=== PATIENT | female | born 1945 | race Caucasian/White ===

== ENCOUNTER → 2016-09-14 11:43 | Outpatient (CLI) | payer MEDICARE, BC ==
[~2016-09-14] VITALS: Ht 167.6 cm; Wt 89.1 kg
--- NOTE | ~2016-09-14 | OP ---
PATIENT NAME: EBONY MONAHAN MEDICAL RECORD: [id number] :49 LOCATION:D.CAT ADMISSION DATE: SURGEON: MELANIE BOYD M.D. DATE OF OPERATION: 09/14/2016 Catheterization Report REFERRING PHYSICIAN: Chris Huang MD. INDICATION: Angina. PROCEDURES PERFORMED: 1. Selective coronary angiography. 2. Left heart catheterization with ventriculogram. EQUIPMENT USED: A 5-Palestinian JL4, Tanner right, pigtail catheter. TECHNIQUE: A 5-Palestinian sheath was inserted in retrograde fashion in the right common femoral artery. Next, selective coronary angiography was performed in standard views using 5-Palestinian JL4 and Tanner right. Left heart catheterization, we used a pigtail catheter. CORONARY ANATOMY: 1. Left main: Left main trunk is moderate in caliber. It gives rise to the LAD and circumflex. It is angiographically normal. 2. LAD: This is a moderate caliber vessel extending to the apex. It has mild irregularities throughout its course, but nothing worse than 20%. 3. Circumflex: This vessel is moderate in caliber. It provides a lateral branch proximal segment. The circumflex and lateral branch are smooth-walled and angiographically normal. 4. Right coronary: This vessel is large in caliber and dominant. The proximal vessel has been stented. There is mild restenosis seen in the proximal stent, but nothing worse than 30%. 5. Left ventricle: Left ventricle is normal in size and function. No wall motions are seen. Its ejection fraction 60%. IMPRESSION: 1. 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 2. Normal left ventricular function. RECOMMENDATIONS: She has been having symptoms of nocturnal angina. The lesion in the right coronary artery does not appear to be critical. However, I will check a Cardiolite stress test to make sure there is no evidence of ischemia account for her symptoms. TRANSINT:[id number] Voice Confirmation ID: [id number] DOCUMENT ID: [id number] OPERATIVE REPORT [id number] EBONY MONAHAN MELANIE BOYD M.D. CC: [id number] DICTATION DATE: 09/14/16 1445 TECHNICAL ASSISTANT: 09/14/16 2359 [facility] [address] [place] [address]
--- NOTE | ~2016-09-14 | HEMODYNAMI ---
PATIENT:EBONY MONAHAN MEDICAL RECORD: [id number] : 49 LOCATION:DMEENU ADMISSION DATE: 09/14/16 Generatedon:09/14/201614:44 Patient name: EBONY MONAHAN Patient #: [id number] SSN: DO B: 1945 Date of study: 09/14/2016 Page: Of Hemodynamic Procedure Report Patient Data Patient Demographics Procedure consent was obtained First Name: EBONY Gender: Female Last Name: TANIYA : 1945 Middle Initial: BRANDON Age: 71 year(s) Patient #: [id number] Race: Unknown Additional ID: [id number] Contact details Address: [address] [place] [address] State: [place] City: [place] Zip code: [address] Past Medical History Allergies Allergen Reaction Date Comments Reported Other allergy 09/14/2016 Codeine, Naproxen, Pravastatin, zocor Admission Admission Data Admission Date: 09/14/2016 Admission Time: 11:43 Lab Results Lab Result Date: 09/14/2016 Lab Result Time: 0:00 Biochemistry Name Units Result Min Max BUN mg/dl 15 --(--*-)-- 7 18 Creatinine mg/dl 0.6 --(*---)-- 0.6 1.3 CBC Name Units Result Min Max Hemoglobin g/dl 15 --(-*--)-- 13.5 17.5 Procedure Procedure Types Cath Procedure Diagnostic Procedure LHC LHC w/Coronaries Miscellaneous Procedures Moderate Sedation up to 15 minutes Procedure Description Procedure Date Procedure Date: 09/14/2016 Procedure Start Time: 14:26 Procedure End Time: 14:42 Procedure Staff Name Function Maximo Rivera MD Performing Physician Elliott Espinoza RT Scrub Jillian Boone RN Nurse Nita Wilkerson RT Monitor Procedure Data Cath Procedure Fluoroscopy Diagnostic fluoroscopy Total fluoroscopy Time: 2.7 time: 2.7 min min Diagnostic fluoroscopy Total fluoroscopy dose: 426 dose: 426 mGy mGy Contrast Material Contrast Material Type Amount (ml) Isovue 300 78 Entry Location Entry Primary Successful Side Size Upsize Upsize Entry Closure Succes sful Closure Location (Fr) 1 (Fr) 2 (Fr) Remarks Device Remarks Femoral Right 5 Fr Exoseal artery Estimated blood loss: 10 ml Diagnostic catheters Device Type Used For End Catheter Placement Cordis 5Fr JL 4.0 Procedure Catheter (MP) Cordis 5Fr 3DRC Catheter Procedure (MP) Cordis 5Fr Pigtail Procedure Catheter (MP) Procedure Complications No complications Procedure Medications Medication Administration Route Dosage Oxygen NC 2 l/min Lidocaine 2% added to field 20 Heparin Flush Bag added to field 2 bags (1000units/500ml NS) 0.9% NaCl I.V. 100 ml/hr Versed I.V. 2 mg Fentanyl I.V. 100 mcg Versed I.V. 1 mg Fentanyl I.V. 50 mcg Versed I.V. 1 mg Fentanyl I.V. 50 mcg Hemodynamics Rest Heart Rate: 67 (bpm) Pressure Samples Time Site Value (mmHg) Purpose Heart Use Rate(bpm) 14:36 LV 151/1,19 Snapshot 67 14:37 AO 179/85(127) Pullback 80 14:37 LV 161/4,21 Pullback 80 Gradients Valve Time Site 1 Site 2 Mean SEP/DFP Peak To Heart Use (mmHg) (sec/min) Peak Rate (mmHg) (bpm) Aortic 14:37 LV AO 0 7 0 80 161/4,21 179/85(127) Calculations Valve P-P Mean Valve Index Valve Source Name Gradient Area Flow (cm2) Aortic 0 0 0 0 Snapshots Pre Cath Intra NCS Post Cath Vital Signs Time Heart Resp SPO2 etCO2 [id number] NIBP (mmHg) Rhythm Pain Sedation Rate (ipm) (%) (mmHg) (mmHg) Status Level (bpm) 14:20:03 72 16 98 0 0 173/91(132) NSR 0 (11) 10(A) , No pain 14:24:27 72 17 93 0 0 179/90(109) NSR 0 (11) 10(A) , No pain 14:28:49 67 17 95 0 0 158/89(126) NSR 0 (11) 9(A) , No pain 14:33:09 77 16 94 0 0 164/84(115) NSR 0 (11) 9(A) , No pain 14:37:23 81 16 94 0 0 160/82(116) NSR 0 (11) 10(A) , No pain 14:41:43 72 19 93 0 0 154/82(124) NSR 0 (11) 10(A) , No pain Medications Time Medication Route Dose Verified Delivered Reason Notes Effe ctiveness by by 14:18:04 Oxygen NC 2 Maximo Buffie used for l/min Miguel Boone RN procedure 14:18:14 Lidocaine 2% added 20ml Maximo Maximo for local to vial Miguel Rivera MD anesthetic field 14:18:20 Heparin Flush added 2 Maximo Maximo for local Bag to bags Miguel Rivera MD anesthetic (1000units/500ml field NS) 14:18:31 0.9% NaCl I.V. 100 Maximo Buffie Per ml/hr Miguel Boone RN physician 14:22:04 Versed I.V. 2 mg Maximo Buffie for Miguel Boone RN sedation 14:22:08 Fentanyl I.V. 100 Maximo Buffie for mcg Miguel Boone RN sedation 14:27:28 Versed I.V. 1 mg Maximo Buffie for Miguel Boone RN sedation 14:27:32 Fentanyl I.V. 50 Maximo Buffie for mcg Miguel Boone RN sedation 14:32:52 Versed I.V. 1 mg Maximo Buffie for Miguel Boone RN sedation 14:32:59 Fentanyl I.V. 50 Maximo Buffie for mcg Miguel Boone RN sedation Procedure Log Time Note 13:42:59 ACC Patient presents with Stable Angina CCS Anginal Class 2--Slight limitation of ordinary activity. 13:43:01 Diagnostic Cath status Elective 13:43:03 Elliott Espinoza RT(R) sent for patient. Start room use. 13:43:05 Time tracking: Regular hours 13:43:09 Plan of Care:Hemodynamics will remain stable., Cardiac rhythm will remain stable., Comfort level will be maintained., Respiratory function will remain adequate., Patient/ family verbilizes understanding of procedure., Procedure tolerated without complication., Recovers from procedure without complications.. 13:51:20 H&P Date Dictated: 10/01/2016 Within 30 days and on chart., H&P Addendum completed by physician on day of procedure. (MUST COMPLETE FOR ALL OUTPATIENTS). 13:52:03 Lab results completed and on chart. 13:52:39 Lab Result : BUN 15 mg/dl 13:52:39 Lab Result : Hemoglobin 15 g/dl 13:52:39 Lab Result : Creatinine 0.6 mg/dl 14:05:29 Patient received from Pre/Post Procedure Room to CCL 1 Alert and oriented. Tansferred to table in Supine position. 14:05:34 Warm blankets applied, and jose hugger turned on for patient comfort. 14:05:40 Correct patient and procedure confirmed by team. 14:05:42 Signed procedure consent form obtained from patient. 14:05:50 Pre-procedure instructions explained to patient. 14:05:52 Family in waiting room. 14:05:59 Patient NPO since Midnight. 14:06:53 Patient allergic to Other allergyCodeine, Naproxen, Pravastatin, zocor 14:06:56 Is the patient allergic to Iodine/contrast media? No. 14:07:05 Patient diabetic? No. 14:07:08 Snore? Yes 14:07:12 Sleep apnea? No 14:07:16 Airway obstruction? No ? 14:15:28 Is patient on blood thinner?Yes 14:15:31 ACC The patient was administered the following blood thiners within the last 24 hours: ACCAspirin 14:15:39 Previous problem with sedation/anesthesia? No ? 14:15:45 Dentures? No ? 14:15:58 Patient pain scale 0/10 ?. 14:16:10 IV patent on arrival in right forearm with 0.9% NaCl at KVO. 14:16:18 Right groin area was prepped with chlora-prep and draped in sterile fashion 14:16:19 Alarms reviewed by R. N. 14:16:20 Sharps counted by scrub and verified by R.N. 14:16:23 Physician paged 14:17:28 Physician arrived 14:17:32 --------ALL STOP TIME OUT------ 14:17:33 Final Timeout: patient, procedure, and site verified with staff and physician. All members of the team are in agreement. 14:17:36 Right groin site verified by team. 14:17:39 Physical assessment completed. ASA score P 2 - A patient with mild systemic disease as per Maximo Rivera MD. 14:17:43 Sedation plan: IV Moderate Sedation Versed, Fentanyl 14:18:04 Oxygen 2 l/min NC was administered by Jillian Boone RN; used for procedure; 14:18:14 Lidocaine 2% 20ml vial added to field was administered by Maximo Rivera MD; for local anesthetic; 14:18:20 Heparin Flush Bag (1000units/500ml NS) 2 bags added to field was administered by Maximo Rivera MD; for local anesthetic; 14:18:31 0.9% NaCl 100 ml/hr I.V. was administered by Jillian Boone RN; Per physician; 14:18:49 Vital chart was started 14:22:04 Versed 2 mg I.V. was administered by Jillian Boone RN; for sedation; 14:22:08 Fentanyl 100 mcg I.V. was administered by Jillian Boone RN; for sedation; 14:23:38 Use device set Femoral Dx 14:23:40 Acist Syringe opened to sterile field. 14:23:40 Bag Decanter opened to sterile field. 14:23:41 Medline Cath Pack opened to sterile field. 14:23:41 Terumo 5Fr Wray Sheath opened to sterile field. 14:23:42 St Zen 260cm J .035 wire opened to sterile field. 14:23:43 Acist Hand Control opened to sterile field. 14:23:43 Acist Manifold opened to sterile field. 14:23:44 Diagnostic Infinity 5Fr Multipack catheter opened to sterile field. 14:23:44 Tegaderm 4 x 4 opened to sterile field. 14:23:56 Procedure type changed to Cath procedure, Diagnostic procedure, LHC, LHC w/Coronaries, Miscellaneous Procedures, Moderate Sedation up to 15 minutes 14:24:06 Zero performed for pressure channel P1 14:26:36 Procedure started. 14:26:36 Full Disclosure recording started 14:26:39 Local anesthetic to right femoral artery with Lidocaine 2% by Maximo Rivera MD.INITIAL ACCESS ONLY 14:26:59 A 5 Fr sheath was inserted into the Right Femoral artery 14:27:28 Versed 1 mg I.V. was administered by Jillian Boone RN; for sedation; 14:27:32 Fentanyl 50 mcg I.V. was administered by Jillian Boone RN; for sedation; 14:27:53 Zero performed for pressure channel P1 14:28:00 Zero performed for pressure channel P1 14:28:07 Zero performed for pressure channel P1 14:28:12 Zero performed for pressure channel P1 14:28:27 J wire advanced. 14:30:18 A Cordis 5Fr JL 4.0 Catheter (MP) was advanced over the wire and used for Procedure. 14:32:28 LCA angiography performed. 14:32:34 Catheter removed. 14:32:52 Versed 1 mg I.V. was administered by Jillian Boone RN; for sedation; 14:32:56 A Cordis 5Fr 3DRC Catheter (MP) was advanced over the wire and used for Procedure. 14:32:59 Fentanyl 50 mcg I.V. was administered by Jillian Boone RN; for sedation; 14:34:33 RCA angiography performed. 14:34:46 Catheter removed. 14:35:44 A Cordis 5Fr Pigtail Catheter (MP) was advanced over the wire and used for Procedure. 14:35:48 LV gram done using FRIEDMAN 14:36:56 EF : 60 % 14:38:18 Cordis 5Fr Exoseal opened to sterile field. 14:39:18 Catheter removed. 14:39:55 Sheath removed intact; hemostasis achieved with Exoseal to the Right Femoral artery. 14:40:03 Procedure ended.(Physican Out) 14:40:37 Fluoroscopy time 02.70 minutes. 14:40:44 Fluoroscopy dose: 426 mGy 14:40:44 Flurop Dose total: 426 14:40:49 Contrast amount:Isovue 300 78ml. 14:40:52 Sharps counted by scrub and verified by R.N. 14:41:01 Insertion/operative site no bleeding no hematoma. 14:41:05 Post-op/insertion site Right Femoral artery dressed using a 4 x 4 and Tegaderm. 14:41:08 Post Procedure Pulses reassessed and unchanged 14:41:12 Post-procedure physical assessment completed. ASA score P 2 - A patient with mild systemic disease as per Maximo Rivera MD. 14:41:16 Post procedure rhythm: unchanged. 14:41:19 Estimated blood loss: 10 ml 14:41:21 Post procedure instruction explained to patient.Patient verbalizes understanding. 14:41:34 Procedure and supply charges have been captured, reviewed, submitted and are correct. 14:41:54 Procedure Complication : No complications 14:41:58 Vital chart was stopped 14:42:07 See physician's report for complete and final results. 14:42:09 Report given to Pre/Post Procedure Room. 14:42:12 Patient transfered to Pre/Post Procedure Room with Stretcher. 14:42:17 Procedure ended. 14:42:17 Full Disclosure recording stopped 14:42:20 End room use (Document Last) Device Usage Item Name Manufacture Quantity Catalog Hospital Part Current Minimal Lo t# / Number Charge Number Stock Stock Serial# Code Acist Acist 1 [id number] [id number] 228456 [id number] 20 Syringe [employer] Bag Microtek 1 2002S 380102 31219 349974 5 Decanter [employer] Inc. Medline Cardinal 1 [id number] 338066 17860 076499 5 Cath Pack Health Terumo 5Fr Terumo 1 [id number] 475960 220125 154892 [address] Zen St Zen 1 900940 345823 504133 007998 30 260cm J .035 wire Acist Hand Acist 1 04819 818176 730867 289158 5 Control Medical [employer] Inc Acist Acist 1 91790 049543 770578 947833 5 Manifold Medical [employer] Inc Diagnostic Cardinal 1 WA1953 150873 26780 638376 30 Infinity Health 5Fr Multipack catheter Tegaderm 4 3M 1 1626W 849985 211985 699343 5 x 4 Cordis 5Fr Cardinal 1 883626 5 JL 4.0 Health Catheter (MP) Cordis 5Fr Cardinal 1 827359 5 3DRC Health Catheter (MP) Cordis 5Fr Cardinal 1 818472 5 Pigtail Health Catheter (MP) Cordis 5Fr Cardinal 1 EX500 210421 800344 236287 10 CallmyName Signature [place]it [place] Stage Time Signature Unsigned Intra-Procedure 09/14/2016 Nita Wilkerson 2:44:32 PM RT(R) Signatures Monitor : Nita Wilkerson Signature : RT Date : Time : [facility] [address] [place] [address]
[~2016-09-14 11:43] MED LIST: BAYER CHEWABLE81 MG PO; CRESTOR10 MG PO; PRILOSEC20 MG PO; PROZAC20 MG PO; TENORMIN25 MG PO
[2016-09-14 12:06] VITALS: BP 153/78; Ht 167.6 cm; Wt 89.1 kg
[2016-09-14 12:28] LABS: CALC OSMOLALITY 274 mosm/kg (275-300); CALCIUM 9.2 mg/dL (8.5-10.1); CARBON DIOXIDE 30.1 mmol/L (21.0-32.0); CHLORIDE - SERUM 100 mmol/L (98-107); CREATININE - SERUM 0.6 mg/dL (0.6-1.3); GLUCOSE 105 mg/dL (74-106); POTASSIUM - SERUM 4.1 mmol/L (3.5-5.1); SODIUM 137 mmol/L (136-145); UREA NITROGEN 15 mg/dL (7-18); eGFR NON AFRICAN AMERICAN > 90 mL/min (90-120)
[2016-09-14 12:42] LABS: BASOPHILS 0.2 % (0-2); EOSINOPHILS 1.5 % (0-7); HEMATOCRIT 44.9 % (36.0-48.0); IMMATURE GRANULOCYTES 0.3 % (0-5); LYMPHOCYTES 27.7 % (15-50); MCH 31.6 pg (26.0-34.0); MCHC 33.4 g/dL (31.0-37.0); MCV 94.5 fL (80.0-100.0); MEAN PLATELET VOLUME 11.5 fL (7.4-10.4); NEUTROPHILS 65.3 % (40-80); PLATELET COUNT 222 10x3/uL (130-400); RBC 4.75 10x6/uL (4.00-5.40); RDW 13.5 % (11.5-14.5); WBC 8.6 10x3/uL (4.8-10.8)
--- NOTE | 2016-09-14 15:19 | NUR ---
1500 RECEIVED PT FROM CARDIAC TECH. PT IS ALERT, DENIES ANY C/O PAIN OR NAUSEA. DRESSING TO RIGHT GROIN IS CDI, NO BLEEDING OR HEMATOMA NOTED. PEDAL PULSES ARE PALPABLE. FEET EQUAL IN COLOR AND WARMTH. IV INFUSING PER ORDERS. AT BEDSIDE. CALL LIGHT IN REACH.
--- NOTE | 2016-09-14 15:21 | NUR ---
1515 RIGHT GROIN DRESSING CDI, AREA IS SOFT AND NONTENDER. PT DENIES ANY C/O. SANDWICH AND PO FLUIDS SERVED. AT BEDSIDE.
--- NOTE | 2016-09-14 15:40 | NUR ---
1530 RIGHT GROIN DRESSING IS CDI, NO BLEEDING OR HEMATOMA NOTED. DENIES ANY C/O CHEST PAIN, VSS, PEDAL PULSES PALPABLE. AT BEDSIDE.
--- NOTE | 2016-09-14 17:12 | NUR ---
1600 PT HAS TOLERATED SANDWICH AND PO FLUIDS WITH NO C/O NAUSEA. DRESSING TO RIGHT GROIN IS CDI, NO BLEEDING OR HEMATOMA NOTED. AREA IS SOFT AND NONTENDER. 1700 PT ATTEMPTED TO VOID USING BEDPAN WITH NO SUCCESS, IV DC'D WITH CATH INTACT. 1730 REVIEWED DC INSTRUCTIONS WITH PT WHO VERBALIZES UNDERSTANDING. PT ESCORTED TO PRIVATE AUTO VIA WC BY STAFF WITH DRIVING HER HOME.
== END | disposition home or self-care (01) ==
LOC: D.CATH 11:43
PROVIDERS: Internal Medicine Cardiovascular Disease
DX: I25.119 Atherosclerotic heart disease of native coronary artery with unspecified angina pectoris (principal); T82.855A Stenosis of coronary artery stent, initial encounter

== ENCOUNTER → 2017-03-17 16:04 | Outpatient (CLI) | payer MEDICARE, BC ==
[2016-09-14 12:06] VITALS: BMI 31.7
== END | disposition home or self-care (01) ==
LOC: D.MAMMO 15:15
DX: Z12.31 Encounter for screening mammogram for malignant neoplasm of breast (principal)

== ENCOUNTER 2019-01-15 08:00 | Outpatient (CLI) | payer MEDICARE, BC ==
[2016-09-14 12:06] VITALS: BMI 31.7
== END 2019-01-15 23:59 | disposition home or self-care (01) ==
LOC: D.MAMMO 08:00
PROVIDERS: ATTEND Family Medicine Adult Medicine
DX: N63.20 Unspecified lump in the left breast, unspecified quadrant (principal)

== ENCOUNTER 2020-01-11 11:45 | Outpatient (CLI) | payer MEDICARE, BC ==
[2016-09-14 12:06] VITALS: BMI 31.7
== END 2020-01-11 13:00 | disposition home or self-care (01) ==
LOC: D.MAMMO 11:45
PROVIDERS: ATTEND Nurse Practitioner Family
DX: Z12.31 Encounter for screening mammogram for malignant neoplasm of breast (principal)